=== PATIENT | male | born 2000 | race Caucasian/White ===

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

== ENCOUNTER 2019-09-03 21:29 | Emergency (ER) | payer MEDICAID, SELFPAY ==
[2019-09-03 21:32] VITALS: BP 163/88; PULSE 104; RESP 21; TEMP 36.7; O2SAT 99
--- NOTE | 2019-09-03 21:35 | ED.GENADUL_ITS ---
Discharge Plan Disposition Patient Disposition: HOME Condition: Stable Discharge Details Chief Complaint: Orthopedic Clinical Impression: Closed dislocation of right middle finger Primary Care Provider: Dirk Preciado ED Provider: Danny Hwang Home Meds and New Rx's Prescriptions: Continued ibuprofen 200 mg Tablet 400 mg PO PRN PRNRF: 0 Discharge Instructions Instructions: Finger Dislocation (ED) Medical Decision Making Pt states he was playing basketball when his right hand hit another player and caused pain and deformity to the right middle finger. He has obvious dislocation at the pip joint of the right hand with no open wounds, intact sensation, no pain in the wrist or rest of hand. Denies hitting head or loc. I reduced with traction at bedside, will xray to eval for underlying fracture xray negative on my read, they are having problems sending images to vrad so will d/c and advised he will be called if they see a fracture. Advised if in pain in a week to see pcp. Has full rom of the finger with intact sensation Differential Diagnosis Differential Diagnosis: fracture, dislocation Imaging Data Radiologic Study: Attestation: I personally reviewed and interpreted this imaging study as follows: Imaging: X-Ray My impression: no acute findings HPI General Mode of arrival: ambulatory . Date/Time Provider Initiated Documentation: 09/03/19 21:30 . Limitations to Documentation: no limitations . Information obtained by: patient . History of Present Illness 18 year old M presents to the emergency department with the chief complaint of left middle finger injury, described as moderate, Quality is described as aching, Patient started experiencing this hour(s) (1) and it has been constant. No relieving factors improve symptom(s), No exacerbating factors reported . Patient did receive the following treatments prior to arrival, none Related Data Home Medications Medication Instructions Recorded Confirmed ibuprofen 400 mg PO PRN PRN 09/03/19 09/03/19 Allergies Allergy/AdvReac Type Severity Reaction Status Date / Time amoxicillin Allergy Severe Other (See Unverified 09/03/19 21:34 Comment) General Stated Complaint: Orthopedic JEREMIAH: 2 Review of Systems All systems reviewed & are unremarkable except as noted in HPI and below Constitutional Constitutional: Denies chills, Denies fever(s) and Denies weakness ENT Ears, Nose, Mouth, and Throat: Denies change in voice Cardiovascular Cardiovascular: Denies chest pain and Denies dyspnea Respiratory Respiratory: Denies cough and Denies dyspnea Gastrointestinal Gastrointestinal: Denies abdominal pain, Denies nausea and Denies vomiting Musculoskeletal Musculoskeletal: Denies joint swelling Neurologic Neurologic: Denies weakness [facility] Social History Smoking/Tobacco Use Status: Never Alcohol Intake: never Drug use: Occasionally Substance use type: marijuana Do you feel safe at home: Yes Do you feel safe in your relationship?: Yes Exam Const General: no acute distress Orientation: alert HENMT Head: normal to inspection Ears: external ears normal General nose exam: external nose normal Mouth: moist mucous membranes Eyes General: appearance normal, both eyes and all related structures Neck Neck: normal visual inspection Resp Effort & Inspection: normal respiratory effort and able to speak in complete sentences Cardio Rate: regular rate Skin General skin exam: no rashes or lesions noted Neuro General: alert and oriented x3 Extrem General: normal capillary refill Psych Mental Status: mental status grossly normal Course Vital Signs Vital signs: Vital Signs Temperature 36.7 C 09/03/19 21:32 Pulse 104 H 09/03/19 21:32 Respiratory Rate 21 09/03/19 21:32 Blood Pressure 163/88 H 09/03/19 21:32 Pulse Oximetry 99 09/03/19 21:32 Temperature 36.7 C 09/03/19 21:32 Pulse 104 H 09/03/19 21:32 Respiratory Rate 21 09/03/19 21:32 Blood Pressure 163/88 H 09/03/19 21:32 Blood Pressure Position Sitting 09/03/19 21:32 Pulse Oximetry 99 09/03/19 21:32 Oxygen Delivery Method Room Air 09/03/19 21:32 Oxygen Flow Rate 0 09/03/19 21:32 Pain Level 9 09/03/19 21:32
--- NOTE | 2019-09-03 21:53 | DI.RAD_ITS ---
EXAM: XR FINGER RT MIDDLE INDICATION: pain s/p fall. COMPARISON: No exams were available for comparison TECHNIQUE: 2D digital imaging was performed. FINDINGS: No acute fracture or dislocation is present. The soft tissues are unremarkable. IMPRESSION: No acute abnormality.
== END 2019-09-03 22:15 | disposition home or self-care (01) ==
PROVIDERS: Emergency Provider Emergency Medicine; PCP Pediatrics
DX: S63.292A Dislocation of distal interphalangeal joint of right middle finger, initial encounter (principal); W50.0XXA Accidental hit or strike by another person, initial encounter
CPT/HCPCS: 99283; 73140; 99282

== ENCOUNTER 2019-10-07 10:44 | Outpatient (CLI) | payer MEDICAID, SELFPAY ==
--- NOTE | 2019-10-07 10:51 | DI.RAD_ITS ---
EXAM: XR FINGER LT MIDDLE INDICATION: swollen PIP joint middle finger S69.90XA INJURY. COMPARISON: XR FINGER RT MIDDLE from 09/03/2019 TECHNIQUE: 2D digital imaging was performed. FINDINGS: There is soft tissue swelling around the proximal interphalangeal joint. No fracture or dislocation i s seen. There is a chronic deformity of the 3rd metacarpal head. IMPRESSION: Soft tissue swelling around the PIP joint.
== END 2019-10-07 11:04 ==
PROVIDERS: PCP Pediatrics; Visit Provider Pediatrics
DX: S69.92XA Unspecified injury of left wrist, hand and finger(s), initial encounter (principal); M79.89 Other specified soft tissue disorders; M21.941 Unspecified acquired deformity of hand, right hand
CPT/HCPCS: 73140

== ENCOUNTER 2020-02-23 16:22 | Outpatient (REF) | payer MEDICAID, SELFPAY ==
[2020-02-25 18:04] LABS: HSV 1 PCR, Varies Negative (Negative); HSV 2 PCR, Varies Negative (Negative)
== END 2020-02-23 16:42 ==
LOC: LBN 16:22
PROVIDERS: PCP Pediatrics; Visit Provider Pediatrics
DX: A64 Unspecified sexually transmitted disease (principal); Z11.3 Encounter for screening for infections with a predominantly sexual mode of transmission
CPT/HCPCS: 87491; 87529; 87591

== ENCOUNTER 2020-03-10 03:49 | Outpatient (CLI) | payer MEDICAID, SELFPAY ==
[2020-03-11 10:43] LABS: HIV-1/2 Ag & Ab Screen Negative (Negative)
[2020-03-11 11:02] LABS: Syphilis Serology (RPR) Negative (Negative)
[2020-03-11 14:46] LABS: Chlamydia Result Negative (Negative); GC Result Negative (Negative)
== END 2020-03-10 04:09 ==
PROVIDERS: Pediatrics; PCP Pediatrics; Visit Provider Nurse Practitioner Pediatrics
DX: A64 Unspecified sexually transmitted disease (principal); Z11.3 Encounter for screening for infections with a predominantly sexual mode of transmission; Z11.4 Encounter for screening for human immunodeficiency virus [HIV]
CPT/HCPCS: 36415; 87389; 87491; 87591; 86592

== ENCOUNTER 2020-10-09 15:40 | Emergency (ER) | payer MEDICAID, SELFPAY ==
[2020-10-09 15:43] VITALS: BP 155/99; PULSE 85; RESP 16; TEMP 36.6; O2SAT 99
--- NOTE | 2020-10-09 16:00 | DI.RAD_ITS ---
EXAM: XR FOOT RT COMPLETE CLINICAL HISTORY: pain. TECHNIQUE: 2D digital imaging was performed. COMPARISON: CR LEFT FOOT COMPLETE from 12/07/2011 FINDINGS: BONES: No acute fracture is present. No bony destructive lesion is seen. JOINTS: No dislocation present. SOFT TISSUE: Normal. IMPRESSION: Unremarkable radiographs of the right foot. DATA REPOSITORY: RADIATION DOSE DELIVERED:
--- NOTE | 2020-10-09 16:33 | DI.VRAD_ITS ---
PROCEDURE INFORMATION: Exam: XR Right Foot Complete Exam date and time: 10/09/2020 4:14 PM Age: 20 years old Clinical indication: Other: Pain TECHNIQUE: Imaging protocol: XR Right foot. Views: 3 or more views. COMPARISON: No relevant images were readily available for comparison purposes. FINDINGS: Bones/joints: No acute fracture or dislocation Soft tissues: Unremarkable IMPRESSION: No acute fracture or dislocation Dictated and Authenticated by: Nathan Monson MD. Ordering:SALVATORE Kumar MD
--- NOTE | 2020-10-09 16:38 | ED.GENADUL_ITS ---
Discharge Plan Discharge Details Chief Complaint: Orthopedic Primary Care Provider: Dirk Preciado ED Provider: Stacy Ralph Home Meds and New Rx's Prescriptions: No Action No Known Home Meds RF: 0 Discharge Instructions Instructions: Foot Sprain (ED) Additional Instructions: Elevate foot above level of heart to reduce swelling throbbing or pain Use ice 20 minutes at a time 3-4 times daily for the first 48 hours then can use heat or ice Acetaminophen 650 mg every 4 hours if needed for pain can add ibuprofen 600 mg with food 4 times daily if needed Wear postoperative shoe for comfort when ambulating Referrals: Dirk Preciado MD [Primary Care Provider] - (If needed) Discharge Data Discharge Date/Time-TO BE ENTERED AT DEPARTURE: 10/09/20 17:09 Medical Decision Making <Stacy Ralph NP - Last Filed: 10/09/20 16:49> Patient arrives with a foot injury that occurred yesterday. Reporting pain to h is mid dorsal aspect of foot\ X-ray shows no acute fracture or dislocation soft tissue is unremarkable He will be placed in a postop shoe and discharged with conservative management for a foot sprain. Heat ice elevation NSAIDs follow-up with his primary care provider as needed Medical Records Medical records reviewed: Yes I reviewed the patient's medical records. Medical records narrative: Patient Name: BING DICKSON #: [id number]: ER Ordering Provider: : [facility] ER Primary Care Provider: Dirk Preciado M.D.Date of Exam: 10/09/20ex: M : 2000Age: 20 Exam(s) PROCEDURE INFORMATION: Exam: XR Right Foot Complete Exam date and time: 10/09/2020 4:14 PM Age: 20 years old Clinical indication: Other: Pain TECHNIQUE: Imaging protocol: XR Right foot. Views: 3 or more views. COMPARISON: No relevant images were readily available for comparison purposes. FINDINGS: Bones/joints: No acute fracture or dislocation Soft tissues: Unremarkable IMPRESSION: No acute fracture or dislocation Dictated and Authenticated by: Nathan Monson MD. Ordering:SALVATORE Kumar MD Lab Data Lab results reviewed: Yes I reviewed the patient's lab results. <Mervat Tate DO - Last Filed: 10/09/20 19:25> Pt not seen or evaluated by me. HPI <Stacy Ralph NP - Last Filed: 10/09/20 16:49> General Mode of arrival: ambulatory . Date/Time Provider Initiated Documentation: 10/09/20 15:51 . Limitations to Documentation: no limitations . Information obtained by: patient . HPI Narrative: Right foot pain that started yesterday after an injury getting up from the couch where he got his foot tangled with someone else and states it bent , he has been using crutches for ambulation today secondary to pain. No other injuries reported. There is no obvious trauma noted. Related Data Home Medications Medication Instructions Recorded Confirmed Unknown [No Known Home Meds] 10/09/20 10/09/20 Allergies Allergy/AdvReac Type Severity Reaction Status Date / Time amoxicillin Allergy Severe Other (See Unverified 10/09/20 15:48 Comment) General Stated Complaint: Orthopedic JEREMIAH: 4 Review of Systems <Stacy Ralph NP - Last Filed: 10/09/20 16:49> Constitutional Constitutional: Denies fever(s) Musculoskeletal Musculoskeletal: Denies deformity, Reports arthralgias and Reports joint swelling Integumentary/Breasts Skin/Breast: Denies lesions and Denies rash Hematologic/Lymphatic Hematologic/Lymphatic: Denies easy bleeding and Denies easy bruising PFSH <Stacy Ralph NP - Last Filed: 10/09/20 16:49> Medical History (Updated 10/09/20 @ 16:46 by Stacy Ralph NP) Attention deficit hyperactivity disorder (ADHD) IEP/504 Plan Wheezing Surgical History Repair, Dental Caries Family History Father Attention deficit hyperactivity disorder Other Substance abuse PGF Diabetes maternal uncle and aunt Alcohol abuse PGF, pateral Great uncle Personal history of malignant neoplasm MGGF-colon, esophagus PGF-lymphoma Bronchiolitis sibling from Mental disorder maternal side with anxiety/depression Stroke MGF Frontal lobe dementia PGM, MGM Attention deficit hyperactivity disorder brother and sister also Mother Healthy adult on routine physical examination Social History Smoking/Tobacco Use Status: Never Smoking risk assessment performed?: Yes Alcohol Intake: current Alcohol Intake frequency: a few times a week Drug use: Daily Substance use type: marijuana Do you feel safe at home: Yes Do you feel safe in your relationship?: Yes Exam <Stacy Ralph NP - Last Filed: 10/09/20 16:49> Const General: cooperative, healthy appearing and comfortable Nutritional Appearance: average body habitus Orientation: alert, awake and oriented x3 Skin General skin exam: no rashes or lesions noted Extrem General: normal to inspection, full ROM, capillary refill normal and no edema Right lower extremity: normal to inspection, normal capillary refill and foot Details: no ecchymosis; no edema Course <Stacy Ralph NP - Last Filed: 10/09/20 16:49> Vital Signs Vital signs: Vital Signs Temperature 36.6 C 10/09/20 15:43 Pulse 85 10/09/20 15:43 Respiratory Rate 16 10/09/20 15:43 Blood Pressure 155/99 H 10/09/20 15:43 Pulse Oximetry 99 10/09/20 15:43 Temperature 36.6 C 10/09/20 15:43 Pulse 85 10/09/20 15:43 Respiratory Rate 16 10/09/20 15:43 Respiratory Effort Non-Labored 10/09/20 15:49 Blood Pressure 155/99 H 10/09/20 15:43 Blood Pressure Position Sitting 10/09/20 15:43 Pulse Oximetry 99 10/09/20 15:43 Oxygen Delivery Method Room Air 10/09/20 15:43 Oxygen Flow Rate 0 10/09/20 15:43 Pain Level 7 10/09/20 15:43
== END 2020-10-09 17:09 ==
PROVIDERS: Emergency Provider Nurse Practitioner Acute Care; PCP Pediatrics
DX: S93.691A Other sprain of right foot, initial encounter (principal); X50.9XXA Other and unspecified overexertion or strenuous movements or postures, initial encounter
CPT/HCPCS: 99283; 73630

== ENCOUNTER 2021-03-04 16:47 | Emergency (ER) | payer MEDICAID, SELFPAY ==
[2021-03-04 16:51] VITALS: BP 162/84; PULSE 64; RESP 16; TEMP 36.8; O2SAT 98
--- NOTE | 2021-03-04 17:07 | ED.GENADUL_ITS ---
Discharge Plan Disposition Patient Disposition: HOME Condition: Stable Discharge Details Chief Complaint: PsychEval Clinical Impression: Depressive disorder Primary Care Provider: Dirk Preciado ED Provider: Danny Hwang Home Meds and New Rx's Prescriptions: No Action No Known Home Meds RF: 0 Discharge Instructions Additional Instructions: follow up with [facility] human services and your primary care provider if you feel more ill or have worsening thoughts of self harm return to the emergency department Medical Decision Making 20 y omale with hx of adhd per chart review and anxiety comes in with chief complaint of feeling sad and depressed intermittently that past few months but worsened over the past few days. HAs also voiced thoughts of self harm and per family he texted everyone goodbye today. Denies attempting to harm himself and has no specific plan, no homicidal ideation. He does smoke, drinks occasional and denies drug use. ARrives with stable gait, clear speech, CN II-XII intact, no focal motor or sensation deficits. No unexplaind weight loss or gain, night sweats or other symptoms to suggest underlying endocrine abnormality and no findings to suggest infectious etiology. Will have mental health evaluate pt remains stable,seen by mental health and they report he gets anxious and stressed at a friends house he was at and is going to spend the night with his mother. He denies SI now. They are arranging for outpatient services and patient and mother are comfortable with this plan. Differential Diagnosis Differential Diagnosis: depression, si Lab Data Lab results reviewed: Yes I reviewed the patient's lab results. HPI General Mode of arrival: ambulatory . Date/Time Provider Initiated Documentation: 03/04/21 16:52 . Limitations to Documentation: no limitations . Information obtained by: patient and family . History of Present Illness 20 year old M presents to the emergency department with the chief complaint of depressed, described as moderate, Patient started experiencing this month(s) (2) and it has been intermittent. No relieving factors improve symptom(s), No exacerbating factors reported . Patient notes no other symptoms.. Patient did receive the following treatments prior to arrival, none Related Data Home Medications Medication Instructions Recorded Confirmed Unknown [No Known Home Meds] 10/09/20 03/04/21 Allergies Allergy/AdvReac Type Severity Reaction Status Date / Time amoxicillin Allergy Severe Other (See Unverified 03/04/21 16:56 Comment) General Stated Complaint: PsychEval JEREMIAH: 2 Review of Systems All systems reviewed & are unremarkable except as noted in HPI and below Constitutional Constitutional: Denies chills, Denies fever(s) and Denies weakness Cardiovascular Cardiovascular: Denies chest pain and Denies dyspnea Respiratory Respiratory: Denies cough and Denies dyspnea Gastrointestinal Gastrointestinal: Denies abdominal pain, Denies nausea and Denies vomiting Musculoskeletal Musculoskeletal: Denies joint swelling Neurologic Neurologic: Denies weakness Psychiatric Psychiatric: Denies depression [facility] Medical History (Updated 03/04/21 @ 18:56 by Danny Hwang MD) Attention deficit hyperactivity disorder (ADHD) IEP/504 Plan Wheezing Surgical History Repair, Dental Caries Family History Father Attention deficit hyperactivity disorder Other Substance abuse PGF Diabetes maternal uncle and aunt Alcohol abuse PGF, pateral Great uncle Personal history of malignant neoplasm MGGF-colon, esophagus PGF-lymphoma Bronchiolitis sibling from Mental disorder maternal side with anxiety/depression Stroke MGF Frontal lobe dementia PGM, MGM Attention deficit hyperactivity disorder brother and sister also Mother Healthy adult on routine physical examination Social History Smoking/Tobacco Use Status: Never Smoking risk assessment performed?: Yes Alcohol Intake: current Alcohol Intake frequency: a few times a week Drug use: Daily Substance use type: marijuana Do you feel safe at home: Yes Do you feel safe in your relationship?: Yes Exam Const General: no acute distress Orientation: alert HENMT Head: normal to inspection Ears: external ears normal General nose exam: external nose normal Mouth: moist mucous membranes Eyes General: appearance normal, both eyes and all related structures Neck Neck: normal visual inspection Resp Effort & Inspection: normal respiratory effort and able to speak in complete sentences Cardio Rate: regular rate Skin General skin exam: no rashes or lesions noted Neuro General: patient alert and patient oriented x3 Extrem General: normal to inspection Psych Appearance: well kempt Course Vital Signs Vital signs: Vital Signs Temperature 36.8 C 03/04/21 16:51 Pulse 64 03/04/21 16:51 Respiratory Rate 16 03/04/21 16:51 Blood Pressure 162/84 H 03/04/21 16:51 Pulse Oximetry 98 03/04/21 16:51 Temperature 36.8 C 03/04/21 16:51 Temperature Source Tympanic 03/04/21 16:51 Pulse 64 03/04/21 16:51 Respiratory Rate 16 03/04/21 16:51 Blood Pressure 162/84 H 03/04/21 16:51 Blood Pressure Position Sitting 03/04/21 16:51 Pulse Oximetry 98 03/04/21 16:51 Oxygen Delivery Method Room Air 03/04/21 16:51 Oxygen Flow Rate 0 03/04/21 16:51 Pain Level 0 03/04/21 16:51
--- NOTE | 2021-03-04 17:15 | CMSP_ITS ---
- If Service Date Differs Date of service: 03/04/21 Time of Service: 17:15 Care Management Safety Plan Status: Voluntary John is a 20 year old man who presented to the ED accompanied by his mother with a chief complaint of depression and SI. Per provider, he has a history of ADHD and has been feeling sad and depressed for the past few months, worse in the past few days. Today he reportedly texted everyone good-bye', however he has not made any attempts to harm himself and has no specific plan. CM will respond to ED to assess patient after patient has been medically cleared and assessed by screener. If screener deems patient meets criteria for psychiatric stabilization CM will facilitate interdepartmental huddle with [facility] screener for safety planning considerations and meet with patient to review [facility] policy and safety plan, establish individual wishes for treatment and maintain patient rights. In the interim; please note safety plan below to guide patient care while awaiting further assessment in the ED. SAFETY PLAN: 1. Will remain on suicide precautions and in paper clothes. 2. Will remain in room under direct supervision of one-on-one staff at all times provided by KYUNG, MECHANICAL DESIGN ENGINEER supervisor solder making. 3. May have paper cups, plates, finger foods as well as a cardboard spoon with which to eat meals. 4. Follow [facility] Management of the Admitted Behavioral Health Patient policy. 5. Personal care: Comfort bath system only at this time. 6. Bathroom privileges: with escort in ED. Available in room without limitation on Med/Surg. 6. No personal belongings at this time; per RN discretion. 7. Visitors: Only Mom may visit at this time. 8. Phone contact limited to Mom. 9. Activities: Music tablet and books or coloring material at nursing discretion. 10. Due to VOLUNTARY status, if patient wishes to leave [facility], staff will contact [facility] Crisis Screener ([phone]) and On-Call Local Superintendent ([phone]) as soon as possible. In the event of elopement, notify [facility] Police ([phone]). If deemed appropriate for inpatient psychiatric care, safety plan will be established with patient, and care team, to adhere to patient goals, identify restrictions based on behavioral status, address nutrition, and determine allowed personal belongings, tools for hygiene and personal care. As well plan will
[2021-03-04 17:18] LABS: Abs Immature Grans 0.03 10^3/uL (0.0-0.06); Absolute Basophil Count 0.03 10^3/uL (0.0-0.2); Absolute Eosinophil Count 0.02 10^3/uL (0.0-0.7); Absolute Lymphocyte Count 2.36 10^3/uL (1.2-3.4); Absolute Monocyte Count 0.97 10^3/uL (0.1-0.8); Absolute Neutrophil Count 6.62 10^3/uL (1.2-6.7); Basophils % 0.3; Eosinophils % 0.2; HCT 47.9 % (40.0-50.0); HGB 17.2 g/dL (13.5-17.5); Immature Grans % 0.3; Lymphocytes % 23.5; MCH 30.8 pg (27.0-33.0); MCHC 35.9 % (32.0-36.0); MCV 85.7 fL (80-95); MPV 10.1 fL (8.0-11.0); Monocytes % 9.7; Nucleated RBC 0 %; Platelet Count 221 10^3/uL (130-400); RBC 5.59 10^6/uL (4.36-5.78); RDW 11.5 % (11.8-14.1); RDW-SD 36.1 fL; WBC 10.03 10^3/uL (4.4-10.8)
[2021-03-04 17:49] LABS: Bilirubin Negative (Negative); Blood Negative (Negative); Clarity Cloudy (Clear); Glucose Negative (Negative); Ketones Trace mg/dL (Negative); Leukocyte Esterase Negative (Negative); Nitrite Negative (Negative); pH 7.5 (5-8)
[2021-03-04 17:49] LABS: ALT 23 U/L (16-63); AST 23 U/L (15-37); Albumin 4.7 g/dL (3.4-5.0); Alkaline Phosphatase 78 U/L (46-116); BUN 14 mg/dL (7-18); Bilirubin, Total 1.1 mg/dL (0.2-1.0); CREATININE 1.2 mg/dL (0.70-1.30); Calcium 9.5 mg/dL (8.5-10.1); Chloride 102 mmol/L (98-107); Glucose 84 mg/dL (74-106); Potassium 3.6 mmol/L (3.5-5.1); Sodium 142 mmol/L (136-145); TSH (W/Ref FT4) 1.42 uIU/mL (0.36-3.74); Total Protein 8.3 g/dL (6.4-8.2)
[2021-03-04 17:54] LABS: Bacteria Negative HPF (Negative); Crystals Many Amorphous HPF (Negative); Epithelial Cells Negative HPF (Negative); RBC 0-2 HPF (0-2); WBC Negative HPF (0-5)
[2021-03-04 17:55] LABS: *AMPHETAMINES SCREEN URINE Negative (Negative); *BARBITURATES SCREEN URINE Negative (Negative); *BENZODIAZEPINES SCREEN URINE Negative (Negative); C & S Indicated? No; Cannabinoids THC Positive (Negative); Casts Negative LPF (Negative); Cocaine Screen,Urine Negative (Negative); METHADONE URINE SCREEN Negative (Negative); Mucus Moderate (Negative); OPIATES URINE SCREEN Negative (Negative)
[2021-03-04 17:58] LABS: Tricyclic Antidepressants Negative (Negative)
[2021-03-04 18:30] LABS: Acetaminophen < 2 ug/mL (10-30); ETHANOL BLOOD < 3.0 mg/dL (<3); Salicylate < 2.8 mg/dL (<2.8)
--- NOTE | 2021-03-04 18:49 | PDOC.MHCN_ITS ---
Date of service: 03/04/21 Time of Service: 18:50 Mental Health Crisis Note Presenting Issue How did you arrive at the ED and why did you come: Client presented to the ER with his mother due to SI Precipitating Factors Client denies SI/HI at this time. There are no evidence of delusions present. Disposition BEHAVIOR: Client was cordial and calm during this assessment EYE CONTACT: Client maintained good eye contact MOOD: Client presented with hopeful mood AFFECT: Client presented with full affect APPETITE: Client reported he tends to overeat especially when he is feeling bored, sad or anxious. SLEEP(trouble falling/staying asleep: Client reported difficulty falling and staying asleep Plan Client will be returning home with his mother and will be staying with her. Client has agreed to check-in call at 1 p.m. tomorroe (03/05/2021). Client also r equested a referral for psychiatric evaluation. Signature Clinician's Name/Title: Jossy Wyatt / Emergency Services Clinician.
== END 2021-03-04 19:00 | disposition home or self-care (01) ==
PROVIDERS: Emergency Provider Emergency Medicine; PCP Pediatrics
DX: F32.9 Major depressive disorder, single episode, unspecified (principal)
CPT/HCPCS: 80053; 80307; 99285; 80320; 80329; 81003; 81015; 84443; 85025; 99283

== ENCOUNTER 2021-09-04 03:35 | Outpatient (CLI) | payer MEDICAID, SELFPAY ==
[2021-09-06 10:42] LABS: HSV Type 1 Ab, IgG Negative (Negative); HSV Type 2 Ab, IgG Negative (Negative)
== END 2021-09-04 03:36 | disposition home or self-care (01) ==
LOC: LBO 03:35
PROVIDERS: Visit Provider Nurse Practitioner Pediatrics
DX: Z20.828 Contact with and (suspected) exposure to other viral communicable diseases (principal)
CPT/HCPCS: 36415; 87529; 86695; 86696

== ENCOUNTER 2022-11-17 14:25 | Outpatient (REF) | payer BC, MEDICAID, SELFPAY ==
[2022-11-19 08:52] LABS: Hepatitis B Surface Ag Negative (Negative)
[2022-11-19 09:40] LABS: Hepatitis C Ab w Rflx HCV PCR Negative (Negative)
[2022-11-19 10:01] LABS: HIV-1/2 Ag & Ab Screen Negative (Negative)
[2022-11-19 10:32] LABS: Syphilis Serology (RPR) Negative (Negative)
[2022-11-19 13:29] LABS: GC Result Negative (Negative)
[2022-11-19 14:07] LABS: Chlamydia Result Positive (Negative)
== END 2022-11-17 14:26 | disposition home or self-care (01) ==
LOC: LBN 14:25
PROVIDERS: Visit Provider Physician Assistant Medical
DX: Z11.3 Encounter for screening for infections with a predominantly sexual mode of transmission (principal); Z11.59 Encounter for screening for other viral diseases
CPT/HCPCS: 86803; 87340; 87389; 87491; 87591; 86592

== ENCOUNTER 2022-12-08 15:27 | Outpatient (REF) | payer BC, MEDICAID, SELFPAY ==
[2022-12-08 16:16] LABS: Bacteria Rare HPF (Negative); Casts Negative LPF (Negative); Crystals Negative HPF (Negative); Epithelial Cells Rare HPF (Negative); Mucus Negative (Negative); Other Cells Negative (Negative); RBC 0-2 HPF (0-2); WBC 0-2 HPF (0-5)
[2022-12-09 06:51] LABS: C & S Indicated? C&S Done As Ordered
[2022-12-10 12:46] LABS: Chlamydia Result Negative (Negative); GC Result Negative (Negative)
== END 2022-12-08 15:28 | disposition home or self-care (01) ==
LOC: LBN 15:27
PROVIDERS: Visit Provider Nurse Practitioner Family
DX: R30.0 Dysuria (principal)
CPT/HCPCS: 87491; 87591; 81015; 87086

== ENCOUNTER 2023-04-03 02:37 | Outpatient (CLI) | payer OTHER, SELFPAY ==
--- NOTE | 2023-04-03 | DI.MRI_ITS ---
Exam(s) MR LUMBAR SPINE WO EXAM: MR LUMBAR SPINE WO CLINICAL HISTORY: LUMBAR STRAIN, S39.012A. TECHNIQUE: Multiplanar multisequence MRI of the Lumbar spine was performed. COMPARISON: No exams were available for comparison FINDINGS: Five lumbar vertebrae are presumed. Conus medullaris is at normal level. There is no evidence of conus mass nor subjacent clumping of in trathecal nerve roots to suggest arachnoiditis. The distal thecal sac appears unremarkable.There is no evidence of Tarlov intrasacral cysts nor other significant findings within the sacral canal Bones:There are no fractures nor ominous osseous lesions in the lumbar vertebral bodies and visualize d sacrum. With respect to the individual levels... T12-L1: Unremarkable L1-2: Normal disc height and signal. No disc herniation nor central canal stenosis.No foraminal steno sis L2-3: Normal disc height. No disc herniation nor central canal stenosis.No foraminal stenosis.No face t arthropathy. L3-4: Normal disc height. No disc herniation or central canal stenosis.No foraminal stenosis.No face t arthropathy. L4-5: Normal disc height and signal. However, there is a posterior central-posterolateral right disc herniation which extends posteriorly 4 mm and is approximately 2 cm wide, indenting the anterior and right side of the thecal sac. Not extending appreciably into the exiting neural foramen on the righ t side. Left neural foramen is widely patent. There is no foraminal stenosis on either side. No pr ominent central canal stenosis. Facet joints at this level appear unremarkable. No ligament of flav um hypertrophy. L5-S1: Normal disc height and signal. No disc herniation at this level. No central canal stenosis. No foraminal stenosis. No facet arthropathy. Soft tissues: paraspinal soft tissues appear unremarkable. IMPRESSION: 1. There is a posterior right paracentral-posterolateral right disc protrusion at the L4-5 level as d escribed above. This indents the thecal sac at this level. Does not appear to extend appreciably in to the exiting neural foramen on either side. No true foraminal stenosis. No prominent central yoly l stenosis. 2. Other levels appear unremarkable. DATA REPOSITORY:
== END 2023-04-03 02:57 ==
PROVIDERS: Visit Provider Emergency Medicine
DX: M51.26 Other intervertebral disc displacement, lumbar region (principal); S39.012A Strain of muscle, fascia and tendon of lower back, initial encounter; X58.XXXA Exposure to other specified factors, initial encounter
CPT/HCPCS: 72148

== ENCOUNTER 2023-07-08 19:36 | Outpatient (REF) | payer MEDICAID, SELFPAY ==
[2023-07-10 09:04] LABS: Hepatitis C Ab w Rflx HCV PCR Negative (Negative)
[2023-07-10 09:36] LABS: Syphilis Serology (RPR) Negative (Negative)
[2023-07-10 09:50] LABS: HIV-1/2 Ag & Ab Screen Negative (Negative)
[2023-07-10 14:21] LABS: Chlamydia Result Negative (Negative); GC Result Negative (Negative)
[2023-07-10 16:07] LABS: HSV 1 DNA Result Negative (Negative); HSV 2 DNA Result Negative (Negative)
== END 2023-07-08 19:37 | disposition home or self-care (01) ==
LOC: LBN 19:36
PROVIDERS: PCP Family Medicine; Visit Provider Nurse Practitioner Family
DX: Z11.3 Encounter for screening for infections with a predominantly sexual mode of transmission (principal); Z11.4 Encounter for screening for human immunodeficiency virus [HIV]; Z11.59 Encounter for screening for other viral diseases
CPT/HCPCS: 86803; 87389; 87491; 87529; 87591; 86592

== ENCOUNTER 2023-09-05 21:05 | Emergency (ER) | payer MEDICAID, SELFPAY ==
[2023-09-05 21:11] VITALS: BP 134/91; PULSE 123; RESP 20; TEMP 37.7; O2SAT 96
[2023-09-05 21:15] VITALS: BP 134/91; PULSE 123; RESP 20; TEMP 37.7; O2SAT 96
--- NOTE | 2023-09-05 21:29 | ED.GENADUL_ITS ---
Discharge Plan Disposition Patient Disposition: Home Condition: Stable Discharge Details Clinical Impression: Viral upper respiratory illness Primary Care Provider: Cornel Cook ED Provider: Stacy Ralph Home Meds and New Rx's Prescriptions: No Action No Known Home Meds Discharge Instructions Instructions: Upper Respiratory Infection (ED) Additional Instructions: Continues ibuprofen 600 mg 4 times daily with food for symptoms. Can add acetaminophen 654 times daily for breakthrough symptoms. Push fluids to stay well-hydrated drinking 6 to 8 glasses of fluids daily. Referrals: Cornel Cook MD [Primary Care Provider] - Discharge Data Discharge Date/Time-TO BE ENTERED AT DEPARTURE: 09/05/23 21:41 Medical Decision Making Well-appearing 22-year-old male presents for evaluation of rhinorrhea fever body aches symptoms most consistent with viral upper respiratory illness. He has no cough no shortness of breath and oxygenating in the high 90s on room air with clear breath sounds. No chest x-ray indicated at this time. We will swab him for COVID influenza antigen test. He has been given supportive instructions for care at home including fever management and symptom management. He is safe for discharge to home. Heart rate elevation likely secondary to his elevated temperature. His oral mucosa is moist and he is tolerating good p.o. intake. Medical Records Medical records reviewed: Yes I reviewed the patient's medical records. HPI General Mode of arrival: ambulatory . Date/Time Provider Initiated Documentation: 09/05/23 21:16 . Limitations to Documentation: no limitations . Information obtained by: patient . HPI Narrative: Patient presents to the emergency department for 1 day history of runny nose, body aches, fatigue, fever. States fever is not documented but reports feeling hot. Denies any close contacts with similar symptoms. Took ibuprofen prior to arrival. Has been taking oral fluids but p.o. solids reduced today due to symptoms. Oxygenating in the mid to high 90s on room air. Denies ear pain throat pain chest pain shortness of breath cough or difficulty swallowing. Related Data Home Medications Medication Instructions Recorded Confirmed Unknown [No Known Home Meds] 10/09/20 09/05/23 Allergies Allergy/AdvReac Type Severity Reaction Status Date / Time amoxicillin Allergy Severe Other (See Verified 09/05/23 21:14 Comment) General Stated Complaint: Fever JEREMIAH: 4 Review of Systems All systems reviewed & are unremarkable except as noted in HPI and below PFSH All Active Problems (Updated 09/05/23 @ 21:34 by Stacy Ralph NP) Viral upper respiratory illness (Acute) Dental caries (Chronic ~02/2017) Routine sports examination for healthy child or adolescent (Chronic 12/22/13) Body mass index (BMI) of 5th to 84th percentile for age in childhood (Chronic 03/13/16) 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) socks, radio must be on a 5 05/20/18 note Depressive disorder (Chronic 05/20/18) improved with counseling but probalby some longsgtanding dysthymia Attention deficit hyperactivity disorder (Chronic 09/14/08) has IEP ( F90.9 Attention-deficit hyperactivity disorder- unspecified type) for developmental/assistive therapy Anxiety (Chronic 05/20/18) crowds, checks doors, light switches 05/20/18 note Medical History (Updated 09/05/23 @ 21:34 by Stacy Ralph NP) Attention deficit hyperactivity disorder (ADHD) Wheezing IEP/504 Plan Surgical History Repair, Dental Caries Family History Father Attention deficit hyperactivity disorder Other Substance abuse PGF Diabetes maternal uncle and aunt Alcohol abuse PGF, pateral Great uncle Personal history of malignant neoplasm MGGF-colon, esophagus PGF-lymphoma Bronchiolitis sibling from Mental disorder maternal side with anxiety/depression Stroke MGF Frontal lobe dementia PGM, MGM Attention deficit hyperactivity disorder brother and sister also Mother Healthy adult on routine physical examination Social History Smoking/Tobacco Use Status: Never Smoking risk assessment performed?: Yes Alcohol Intake: current Alcohol Intake frequency: a few times a week Drug use: Daily Substance use type: marijuana Housing: apartment Do you feel safe at home: Yes Do you feel safe in your relationship?: Yes Exam Narrative Exam Narrative: Well-appearing male of stated age in no acute distress respirations are even and unlabored breath sounds are clear bilaterally with no wheezing or rhonchi. Head is atraumatic he has clear rhinorrhea. TMs not visualized due to cerumen but denies ear pain. External canals are otherwise clear. Posterior pharynx is clear with no exudate or erythema. Uvula midline. Cardiovascular tachycardic in the 120s. Abdomen is soft and benign extremities are without edema skin with no rashes or lesions. Course Vital Signs Vital signs: Vital Signs Temperature 37.7 C H 09/05/23 21:11 Pulse 123 H 09/05/23 21:11 Respiratory Rate 20 09/05/23 21:11 Blood Pressure 134/91 H 09/05/23 21:11 Pulse Oximetry 96 09/05/23 21:11 Temperature 37.7 C H 09/05/23 21:15 Temperature Source Oral 09/05/23 21:11 Pulse 123 H 09/05/23 21:15 Respiratory Rate 20 09/05/23 21:15 Respiratory Effort Normal 09/05/23 21:15 Blood Pressure 134/91 H 09/05/23 21:15 Blood Pressure Position Sitting 09/05/23 21:11 Pulse Oximetry 96 09/05/23 21:15 Oxygen Delivery Method Room Air 09/05/23 21:11 Oxygen Flow Rate 0 09/05/23 21:11 PAWSS Have you Been Recently Intoxicated or Drunk Within the Last 30 days?: Yes Have you Ever Experienced Previous Episodes of Alcohol Withdrawal?: No Have you ever Experienced Withdrawal Seizures?: No Have you ever Experienced Delirium Tremens(DT)s?: No Have you ever undergone Alcohol Rehabilitation Treatment (i.e, inpt ot outla tient treatment programs)?: No Have you ever Experienced Blackouts?: No Have you ever Combined Alcohol with other Downers within the last 90 days?: No Have you ever Combined Alcohol with any other Substance of Abuse during the last 90 days?: No Positive Blood Alcohol level on Presentation? [PCS.BAL]: No Evidence of Increased Autonomic Activity (i.e. HR>120, tremor, sweating, agitation, nausea)?: No Result: 1
== END 2023-09-05 21:41 | disposition home or self-care (01) ==
PROVIDERS: Emergency Provider Nurse Practitioner Acute Care; PCP Family Medicine
DX: J06.9 Acute upper respiratory infection, unspecified (principal)
CPT/HCPCS: 99282; 99283

== ENCOUNTER 2024-07-21 23:37 | Emergency (ER) | payer MEDICAID, SELFPAY ==
[2024-07-21 23:39] VITALS: BP 154/79; PULSE 70; RESP 16; TEMP 36.2; O2SAT 100
--- NOTE | 2024-07-21 23:44 | ED.GENADUL_ITS ---
Discharge Plan Disposition Patient Disposition: Home Condition: Good Discharge Details Clinical Impression: COVID-19 Primary Care Provider: Cornel Cook ED Provider: Zachary Asencio Home Meds and New Rx's Prescriptions: No Action No Known Home Meds Discharge Instructions Additional Instructions: Your symptoms are because you have COVID. Rest, hydrate, alternate ac etaminophen with ibuprofen every 4 hours to help with bodyaches and fever. See below in regards to recommendations for returning to work. Follow-up with primary care next week if not improving. Return to ED for any mental status change, chest pain, shortness of breath, persistent vomiting, other concerns. * You can go back to your normal activities when, for at least 24 hours, both are true: * Your symptoms are getting better overall,?and * You have not had a fever (and are not using fever-reducing medication). * When you go back to your normal activities, take added precaution over the next 5 days, such as?hygiene,?masks,?physical distancing when you will be around other people indoors. This is especially important to protect people with factors that increase their risk of severe illness from respiratory viruses. * Keep in mind that you may still be able to spread the virus that made you sick, even if you are feeling better. You are likely to be less contagious at this time, depending on factors like how long you were sick or how sick you were. * If you develop a fever or you start to feel worse after you have gone back to normal activities, stay home and away from others again until, for at least 24 hours, both are true: your symptoms are improving overall, and you have not had a fever (and are not using fever-reducing medication). Then take added precaution for the next 5 days. Referrals: Cornel Cook MD [Primary Care Provider] - [facility] General Mode of arrival: ambulatory . Date/Time Provider Initiated Documentation: 07/21/24 23:44 . Limitations to Documentation: no limitations . Information obtained by: patient and RN notes reviewed . HPI Narrative: Patient presents to ED with 2 days of subjective fever, chills, body aches, sore throat, cough. Saturday he had some vomiting and continues to have some diarrhea now. No abdominal pain. No chest pain. No real difficulty breathing at all. The body aches and malaise bother him the most. He did take ibuprofen prior to coming. Related Data Home Medications ?Medication ?Instructions ?Recorded ?Confirmed Unknown [No Known Home Meds] 10/09/20 07/21/24 Allergies Allergy/AdvReac Type Severity Reaction Status Date / Time amoxicillin Allergy Severe Other (See Verified 07/21/24 23:43 Comment) General Stated Complaint: Sorethroat JEREMIAH: 5 Review of Systems Narrative: Per HPI Exam Narrative Exam Narrative: Const: WDWN male in NAD. VS per triage. HEENT: NC/AT. Normal facial exam. TMs clear bilaterally. Oropharynx clear with no erythema or exudate. Neck: Supple. Trachea midline. Lungs: Normal respiratory effort. Lungs are clear. Cor: RRR without murmur. Good radial pulses. Neuro: A+O x 3. Normal speech, mentation, gait. Cranial nerves II - XII grossly intact. No gross motor or sensory deficit. Ext: No C/C/E. Course Vital Signs Vital signs: Vital Signs Temperature 97.2 F L 07/21/24 23:39 Pulse 70 07/21/24 23:39 Respiratory Rate 16 07/21/24 23:39 Blood Pressure 154/79 H 07/21/24 23:39 Pulse Oximetry 100 07/21/24 23:39 Temperature 97.2 F L 07/21/24 23:39 Temperature Source Tympanic 07/21/24 23:39 Pulse 70 07/21/24 23:39 Respiratory Rate 16 07/21/24 23:39 Blood Pressure 154/79 H 07/21/24 23:39 Pulse Oximetry 100 07/21/24 23:39 Pain Level 4 07/21/24 23:39 Medical Decision Making Patient likely with viral illness/URI, potentially COVID versus influenza. He is afebrile here. Pulse and O2 sats normal. Lungs are clear to auscultation. Does not require chest imaging at this time. Fluvid swab sent. Fluvid swab is positive for COVID. Patient is young and healthy and does not require Paxlovid. Updated isolation and return to work recommendations given. Rest, hydrate, alternate acetaminophen with ibuprofen. Follow-up with primary care next week if not improving. Return precautions provided. Lab Data Lab results reviewed: Yes I reviewed the patient's lab results. 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) socks, radio must be on a 5 05/20/18 note Depressive disorder (Chronic 05/20/18) improved with counseling but probalby some longsgtanding dysthymia Attention deficit hyperactivity disorder (Chronic 09/14/08) has IEP ( F90.9 Attention-deficit hyperactivity disorder- unspecified type) for developmental/assistive therapy Anxiety (Chronic 05/20/18) crowds, checks doors, light switches 05/20/18 note Medical History Attention deficit hyperactivity disorder (ADHD) Surgical History Repair, Dental Caries Family History Father Attention deficit hyperactivity disorder Other Substance abuse PGF Diabetes maternal uncle and aunt Alcohol abuse PGF, pateral Great uncle Personal history of malignant neoplasm MGGF-colon, esophagus PGF-lymphoma Bronchiolitis sibling from Mental disorder maternal side with anxiety/depression Stroke MGF Frontal lobe dementia PGM, MGM Attention deficit hyperactivity disorder brother and sister also Mother Healthy adult on routine physical examination Social History Smoking/Tobacco Use Status: Never Smoking risk assessment performed?: Yes Alcohol Intake: current Alcohol Intake frequency: a few times a week Drug use: Daily Substance use type: marijuana Housing: apartment Do you feel safe at home: Yes Do you feel safe in your relationship?: Yes
[2024-07-22 00:34] LABS: Influenza A PCR Negative (Negative); Influenza B PCR Negative (Negative); RSV PCR Negative (Negative)
[2024-07-22 00:48] LABS: COVID-19 PCR Positive (Negative); Source Nasopharynx
== END 2024-07-22 01:03 | disposition home or self-care (01) ==
PROVIDERS: Emergency Provider Emergency Medicine; PCP Family Medicine
DX: U07.1 COVID-19 (principal); R05.1 Acute cough; R50.9 Fever, unspecified; R11.2 Nausea with vomiting, unspecified; R19.7 Diarrhea, unspecified; Z11.52 Encounter for screening for COVID-19
CPT/HCPCS: 87637; 99282; 99283

== ENCOUNTER 2024-12-03 01:12 | Emergency (ER) | payer MEDICAID, SELFPAY ==
--- NOTE | 2024-12-03 01:00 | RT.EKG_ITS ---
APPROVED REPORT Exam: Resting ECG Reason for Exam: chest pain Patient Location: E HR:66 bpm ECG Measurements Heart Rate 66 AXIS KS 120 P 31 QRSd 113 QRS 82 QT 385 T 28 QTc 405 Conclusion Unknown rhythm, irregular rate...V-rate 54- 89, variation>10% Physician: Sinus, normal intervals, no stemi
[2024-12-03 01:15] VITALS: BP 151/57; PULSE 74; RESP 18; TEMP 36.8; O2SAT 97
--- NOTE | 2024-12-03 01:43 | W.ED.GENAD ---
Discharge Plan Disposition Patient Disposition: Home Condition: Good Discharge Details Clinical Impression: Chest discomfort Primary Care Provider: Cornel Cook ED Provider: Jacky Machado Home Meds and New Rx's Prescriptions: No Action No Known Home Meds Discharge Instructions Instructions: Chest Pain, Adult ED Additional Instructions: At this time thankfully there is no evidence of heart attack or other significant abnormality on your exam. I am concerned that your symptoms may be related to 1 of 2 things, first there may be a component of precordial catch syndrome which is when the viscous layers of your internal organs can sometimes catch on 1 another and cause some mild pain. Additionally there is concern that you may be having symptoms of reflux which is secondary to too much acid moving up towards the esophagus. Please cut down on your intake of spicy foods. Please take 2-3 Tums before bed every night. Please do not eat 30 minutes before bed. We have placed a referral for a surveillance monitor for you. They will contact you for this appointment time. If you have not heard from them in the next 24 hours please reach out to the number provided. If you notice any worsening of your symptoms, or any new symptoms such as vomiting, diarrhea, fever, chills, shortness of breath, chest pain, numbness, weakness, or fainting , please return immediately to the emergency department for reevaluation. Please follow up with your primary care provider as soon as possible for reassessment and reevaluation. As always, it was a pleasure participating in your medical care today. Referrals: Cornel Cook MD [Primary Care Provider] - Discharge Orders Other Ambulatory Orders: Holter Monitor (Routine) Timeframe: 1 Week Facility: [facility] - Location: Respiratory Therapy Ordered By: Jacky Machado Discharge Data Discharge Date/Time-TO BE ENTERED AT DEPARTURE: 12/03/24 01:55 HPI General Date/Time Provider Initiated Documentation: 12/03/24 01:16. HPI Narrative: 24-year-old male with a past medical history of obsessive compulsive disorder, depression, ADHD, anxiety, presents today for evaluation of chest discomfort. Patient states that for the last 2 months he has had intermittent chest pain, it last about 30 seconds, it usually occurs when he is lying down to go to bed. He describes it as a sharp achy like sensation in his chest. No pleuritic component. No shortness of breath. No exertional dyspnea. No arm neck or shoulder pain. Patient does admit to eating regular spicy foods on a regular basis. Related Data Home Medications ?Medication ?Instructions ?Recorded ?Confirmed Unknown [No Known Home Meds] 10/09/20 12/03/24 Allergies Allergy/AdvReac Type Severity Reaction Status Date / Time amoxicillin Allergy Severe Other (See Verified 12/03/24 01:21 Comment) General Stated Complaint: Chest Pain JEREMIAH: 3 Exam Narrative Exam Narrative: 1.Const: Well-nourished, Well-developed, appearing stated age 2.Eyes: PERRL, no conjunctival injection, and symmetrical lids. 3.ENT: Atraumatic external nose and ears. Moist MM. Neck: Symmetric, trachea midline, No thyromegaly. 4.CVS: +S1/S2, Peripheral pulses 2+ and equal in all extremities. Brisk capillary refill in all extremities. 5.RESP: Unlabored respiratory effort. Clear to auscultation bilaterally. No wheezes rales or rhonchi 6.GI: Soft, Nontender/Nondistended, No hepatosplenomegaly. No guarding or rebound. 7.MSK: Normocephalic/Atraumatic, Extremities w/o deformity or ttp No cyanosis or clubbing, Normal movement of all extremities 8.Skin: Warm, Dry. No rashes or lesions. 9.Neuro: lead technologist in cytogenetics II-XII grossly intact. Sensation grossly intact, no focal neurologic deficits. 10.Psych: (AAO) x3. Appropriate mood and affect Course Vital Signs Vital signs: Vital Signs Temperature 36.8 C 12/03/24 01:15 Pulse 74 12/03/24 01:15 Respiratory Rate 18 12/03/24 01:15 Blood Pressure 151/57 H 12/03/24 01:15 Pulse Oximetry 97 12/03/24 01:15 Temperature 36.8 C 12/03/24 01:15 Temperature Source Temporal Artery Scan 12/03/24 01:15 Pulse 74 12/03/24 01:15 Respiratory Rate 18 12/03/24 01:15 Respiratory Effort Normal 12/03/24 01:19 Blood Pressure 151/57 H 12/03/24 01:15 Blood Pressure Position Supine 12/03/24 01:15 Pulse Oximetry 97 12/03/24 01:15 Oxygen Delivery Method Room Air 12/03/24 01:15 Oxygen Flow Rate 0 12/03/24 01:15 Pain Level 0 12/03/24 01:15 Medical Decision Making 24-year-old male with a past medical history of obsessive compulsive disorder, depression, ADHD, anxiety, presents today for evaluation of chest discomfort. Patient states that for the last 2 months he has had intermittent chest pain, it last about 30 seconds, it usually occurs when he is lying down to go to bed. He describes it as a sharp achy like sensation in his chest. No pleuritic component. No shortness of breath. No exertional dyspnea. No arm neck or shoulder pain. Patient does admit to eating regular spicy foods on a regular basis. Physical exam demonstrates a well-appearing male, no acute distress. Vital signs stable aside from mild hypertension. No reproducible chest wall tenderness. No rash. No paradoxical chest wall movements. Bedside limited cardiac ultrasound shows no evidence of pericardial effusion or tamponade, no signs of wall motion abnormality. No significant cardiac abnormality. Bedside lung ultrasound shows no evidence of pneumothorax. EKG is notably benign. Symptoms appear consistent with precordial catch syndrome versus GERD. No evidence to suggest tumor mass, fatal dysrhythmia, or other significant abnormality. Out of an abundance of precaution we will place an order for a 48-hour Holter monitor. Recommend diet change. Will give omeprazole and Carafate. Patient feels asymptomatic at this time. Discussed red flags for which to return. Recommend close follow-up with PCP.. I have extensively reviewed the treatment plan and discharge instructions with the patient. I have addressed all patient concerns at this time. The patient was made aware of what symptoms to monitor for that would warrant a return to the emergency department. Discussed the plan with the patient, they demonstrate verbal understanding and agreement with our assessment and plan at this time. The documentation in this chart was dictated using [employer] dictation software. Please excuse any dictation errors. 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) socks, radio must be on a 5 05/20/18 note Depressive disorder (Chronic 05/20/18) improved with counseling but probalby some longsgtanding dysthymia Attention deficit hyperactivity disorder (Chronic 09/14/08) has IEP ( F90.9 Attention-deficit hyperactivity disorder- unspecified type) for developmental/assistive therapy Anxiety (Chronic 05/20/18) crowds, checks doors, light switches 05/20/18 note Medical History Attention deficit hyperactivity disorder (ADHD) Surgical History Repair, Dental Caries Family History Father Attention deficit hyperactivity disorder Other Substance abuse PGF Diabetes maternal uncle and aunt Alcohol abuse PGF, pateral Great uncle Personal history of malignant neoplasm MGGF-colon, esophagus PGF-lymphoma Bronchiolitis sibling from Mental disorder maternal side with anxiety/depression Stroke MGF Frontal lobe dementia PGM, MGM Attention deficit hyperactivity disorder brother and sister also Mother Healthy adult on routine physical examination Social History Smoking/Tobacco Use Status: Never Smoking risk assessment performed?: Yes Alcohol Intake: current Alcohol Intake frequency: a few times a week Drug use: Daily Substance use type: marijuana Housing: apartment Do you feel safe at home: Yes Do you feel safe in your relationship?: Yes POCUS Exam (ED) Limited Cardiac Exam DATE OF EXAM: 12/03/24 TIME OF EXAM: 01:54 PROVIDER THAT PERFORMED THE STUDY: Jacky Machado IS THIS A REPEAT EXAM DURING THIS ENCOUNTER: no REASON FOR EXAM: Chest pain VISUALIZED STRUCTURES: Left atrium, Left ventricle, Right ventricle and Interventricular septum VIEW OBTAINED: Parasternal long-axis and Parasternal short-axis PERTINENT FINDINGS/IMPRESSION: No apparent abnormalities Exam complete Limited Thoracic Lung Exam DATE OF EXAM: 12/03/24 TIME OF EXAM: 01:55 PROVIDER THAT PERFORMED THE STUDY: Jacky Machado IS THIS A REPEAT EXAM DURING THIS ENCOUNTER: No REASON FOR EXAM: Chest pain VISUALIZED STRUCTURES: right lateral, left lateral, right posterior and left posterior PERTINENT FINDINGS/
[2024-12-03] MEDS: Sucralfate 1 GM TAB PO (01:55)
== END 2024-12-03 01:55 | disposition home or self-care (01) ==
LOC: ER 02:03
PROVIDERS: Emergency Provider Student in an Organized Health Care Education/Training Program; PCP Family Medicine
DX: R07.89 Other chest pain (principal); F32.A Depression, unspecified; F41.9 Anxiety disorder, unspecified; F42.9 Obsessive-compulsive disorder, unspecified
CPT/HCPCS: 76604; 93005; 93308; 99284; 93010